=== PATIENT | male | born 1950 | race Caucasian/White ===

== ENCOUNTER 2025-01-07 13:56 | Emergency (ER) | payer MEDICARE ==
[2025-01-07 15:14] LABS: Bacteria/HPF None Seen HPF (None Seen); CAUTI Indications for Culture Alt mental st,lethar; Glucose, Urine (Dipstick) Normal (Negative); Leukocyte Negative Leu/uL (Negative); Protein, Urine (Dipstick) Negative (Neg-Trace); Specific Gravity, Urine 1.002 (1.002-1.036); WBC/HPF 0-3 HPF (0-3)
[2025-01-07 15:22] LABS: RBC/HPF 21-50 HPF (0-3)
[2025-01-07 15:24] LABS: Urine Culture Reflex No No
[2025-01-07 16:49] LABS: ALT (SGPT) 7 U/L (Less than 45); AST (SGOT) 40 U/L (11-34); Albumin 4.1 g/dL (3.1-4.5); Alkaline Phosphatase 142 U/L (40-110); Anion Gap 14 mmol/L (10-20); BUN (Urea Nitrogen) 13 mg/dL (8.4-25.7); Bilirubin, Total 0.9 mg/dL (0.3-1.2); Calc. Creatinine Clearance 0 mL/min (70-130); Calcium 9.2 mg/dL (7.8-10.44); Carbon Dioxide 29 mmol/L (23-31); Chloride 104 mmol/L (98-107); Globulin 2.8 g/dL (2.4-3.5); Glucose 111 mg/dL (83-110); Lipase 23 U/L (8-78); Potassium 3.7 mmol/L (3.5-5.1); Sodium 143 mmol/L (136-145)
[2025-01-07 17:06] LABS: #Basophils 0.05 10x3/uL (0.0-0.2); #Eosinophils 0.09 10x3/uL (0.0-0.7); #Monocytes 0.58 10x3/uL (0.11-0.59); #Neutrophils 6.54 10x3/uL (1.40-6.50); %Basophils 0.6 % (0.0-1.0); %Eosinophils 1.1 % (0.0-10.0); %Lymphocytes 13.5 % (21.0-51.0); %Monocytes 6.9 % (0.0-10.0); %Neutrophils 77.8 % (42.0-75.0); Hematocrit 40.1 % (42.0-52.0); Hemoglobin 12.7 g/dL (14.0-18.0); Mean Corpuscular Hemoglobin 27.8 pg (27.0-31.0); Mean Corpuscular Volume 87.7 fL (78.0-98.0); Platelet Count 43 10x3/uL (130-400); Red Blood Cell (RBC) Count 4.57 mill/uL (4.70-6.10); White Blood Cell (WBC) Count 8.40 10x3/uL (4.8-10.8)
[2025-01-07 17:52] LABS: Burr Cells MODERATE= 6-15 cells HPF (0-1); Platelet Adequacy Comment Significant Decrease; Polychromasia SLIGHT = 2-3 cells HPF (0-2); Schistocytes SLIGHT = 2-5 cells HPF (0-1)
== END 2025-01-07 18:23 | disposition home or self-care (01) ==
LOC: ERS 13:56
DX: R30.0 Dysuria (principal); I10 Essential (primary) hypertension; F17.200 Nicotine dependence, unspecified, uncomplicated; Z79.899 Other long term (current) drug therapy
CPT/HCPCS: 80053; 81001; 83690; 85025; 87086; 99283